=== PATIENT | female | born 1980 | race African-American/Black ===

== ENCOUNTER 2020-11-18 22:59 | Emergency (ER) | payer MEDICAID ==
[~2020-11-18] VITALS: Ht 160 cm; Wt 81.0 kg
[2020-11-18] MEDS ORDERED: ONDANSETRON HCL 4MG/2ML INJ IV ONE (23:45)
[2020-11-18] MEDS ORDERED: SODIUM CHLORIDE 0.9% 1,000 ML IV ONE (23:45)
[2020-11-18] MEDS ORDERED: MORPHINE SULFATE 4 MG/ML CPJ (NOT FOR IM USE) IV ONE (23:45)
[2020-11-19 00:25] LABS: BASOPHILS % 0.5 % (0.0-2.0); EOSINOPHILS % 1.6 % (0.0-5.0); HEMOGLOBIN. 11.3 g/dL (12.0-16.0); LYMPHOCYTES % 30.9 % (20.0-50.0); MEAN CORPUSCULAR HEMOGLOBIN 21.8 pg (28.0-32.0); MEAN CORPUSCULAR VOLUME 69.6 fL (81.0-99.0); MEAN PLATELET VOLUME 8.8 fl (7.4-10.4); PLATELET 209 x1000/uL (130-400); RED BLOOD CELL COUNT 5.17 mill/uL (4.2-5.4); RED CELL DISTRIBUTION WIDTH 15.5 % (11.6-14.6)
[2020-11-19 00:34] LABS: CHLORIDE 113 mEq/L (98-107)
[2020-11-19 01:39] LABS: CLARITY URINE CLOUDY (CLEAR); COLOR URINE YELLOW (YELLOW); KETONES URINE TRACE (NEGATIVE); LEUKOCYTE ESTERASE URINE TRACE (NEGATIVE); NITRITE URINE NEGATIVE (NEGATIVE); OCCULT BLOOD URINE 3+ (NEGATIVE); PH URINE 5.5 (4.5-8.0); PROTEIN URINE 2+ (NEGATIVE); SPECIFIC GRAVITY URINE 1.027 (1.005-1.030)
[2020-11-19 01:55] LABS: B-HCG QUANTITATIVE > 5000 mIU/mL (<3)
[2020-11-19] MEDS ORDERED: CEPH250C2 MT (02:00)
[2020-11-19] MEDS ORDERED: CEFTRIAXONE 1 G PREMIX 50 ML IV NR (02:00)
[2020-11-19 02:42] VITALS: BP 121/86
[2020-11-19 02:59] LABS: PLATELET ESTIMATE NORMAL
== END 2020-11-19 03:08 | disposition home or self-care (01) ==
LOC: ER 22:59
DX: O03.4 Incomplete spontaneous abortion without complication (principal)
CPT/HCPCS: 36415; 76801; 76817; 80053; 81003; 84702; 85025; 86850; 86900; 86901; 93005; 96361; 96365; 96375; 99285; J0696; J2270; J2405; J7030

== ENCOUNTER 2021-10-29 20:32 | Observation (INO) | payer MEDICAID, OTHER ==
[~2021-10-29 20:32] MED LIST: CEPH250C2 MT
== END 2021-10-29 23:55 | disposition home or self-care (01) ==
LOC: 8 EST LDRP 20:32 → INTOOBSV 20:32
PROVIDERS: ADMIT Obstetrics & Gynecology; ATTEND Obstetrics & Gynecology
DX: Z36.89 Encounter for other specified antenatal screening (principal); O09.522 Supervision of elderly multigravida, second trimester; Z3A.24 24 weeks gestation of pregnancy
CPT/HCPCS: 59025; 76805; G0378; 99281; G0379